=== PATIENT | male | born 1980 | race Two or more races ===

== ENCOUNTER 2019-01-16 10:44 | Emergency (ER) | payer MEDICAID ==
--- NOTE | 2019-01-16 13:18 | ED Physician Chart ---
ED Chief Complaint/HPI - Patient Information Date Seen:: 01/16/19 Time Seen:: 11:00 Chief Complaint:: s/p swimming q tip pain r ear Allergies:: Allergies Allergy/AdvReac Type Severity Reaction Status Date / Time No Known Allergies Allergy Verified 01/16/19 11:11 Vitals:: Vital Signs - 8 hr 01/16/19 01/16/19 10:51 11:15 Temp 98.2 F 98.2 F HR 77 77 RR 18 18 BP 145/74 145/74 O2 Sat % 99 99 Historian:: Patient Review:: Nurse's Note Reviewed ED Review of Systems - Review of Systems General/Constitutional: No fever Head: Headache (ear pain) Eyes: No loss of vision ENT: Earache Neck: No neck pain Hematopoietic: No bruising Allergic/Immuno: No urticaria Neurological: No syncope, No vertigo ED Past Medical History - Past Medical History Past Medical History: No significant medical hx Family Medical History - Family Member Mother Other Medical History: NO MEDICAL CONDITIONS BOTH PARENTS ED Physical Exam - Physical Examination General/Constitutional: Awake, Well-developed, well-nourished, Alert, No distress, GCS 15, Non-toxic appearing, Ambulatory Head: Atraumatic Eyes: Lids, conjuctiva normal ENMT: External ears, nose nl (traction pain 2/5) Neck: Full ROM w/o pain Respiratory: Clear to Auscultation Cardio Vascular: RRR Misc: Normal back ED Assessment - Assessment General Assessment: acute otitis externa early ED Septic Shock - . Is Septic Shock (SBP<90, OR Lactate>4 mmol\L) present?: No - <6hrs of presentation: Vital Signs: Vital Signs - 8 hr 01/16/19 01/16/19 10:51 11:15 Temp 98.2 F 98.2 F HR 77 77 RR 18 18 BP 145/74 145/74 O2 Sat % 99 99 ED Reassessment (Disposition) - Reassessment Reassessment Condition:: Unchanged (vol doris hc no h2o no q tip septra ds indocin s/p aleve tylenol tylenol 3 if nothing works) - Aftercare/Follow up Instructions Aftercare/Follow-Up Instructions:: Counseled pt regarding lab results/diagnosis & need follow up - Patient Disposition Discharge/Transfer:: Home Transport Method:: Private
== END 2019-01-16 11:30 | disposition home or self-care (01) ==
LOC: ER 10:44
DX: H92.01 Otalgia, right ear (principal); R51 Headache
CPT/HCPCS: Z7502